=== PATIENT | female | born 1965 | race Caucasian/White ===

== ENCOUNTER 2023-03-06 07:27 | Day surgery (SDC) | payer MEDICARE ==
[2023-03-01 16:22] VITALS: BMI 43.4
[~2023-03-06 07:27] MED LIST: LACTATED RINGERS 1,000 ML IV SCH; LIDOCAINE 1% (10MG/ML) FOR IV START INTRADERMA PRN
[2023-03-06 07:54] VITALS: RESP 16; TEMP 97.1
[2023-03-06 08:14] LABS: Glucose,Whole Blood 150 mg/dL (70-110)
[2023-03-06] MEDS ORDERED: PROPOFOL 10 MG/ML 20 ML VIAL IV ONE (08:21)
[2023-03-06] MEDS ORDERED: LIDOCAINE 2% INJ 20 MG/ML (2 ML VIAL) ONE (08:21)
--- NOTE | 2023-03-06 08:24 | P.GSHP ---
History of Present Illness H&P Date: 03/06/23 Chief Complaint: Dysphagia, screening, history of polyps 87 yo female here for upper and lower endoscopy. Patient with history of Sjogren's disease. Patient has complaints of dysphagia. Was told she had elevated eosinophils per her primary care physician. She has a history of colon polyps. No bowel complaints currently. Past Medical History Past Medical History: Cancer Additional Past Medical History / Comment(s): Celiac, Sjogren's & Legius syndrome. Hx. of uterine cancer. History of Any Multi-Drug Resistant Organisms: None Reported Past Surgical History: Section, Hysterectomy Additional Past Surgical History / Comment(s): Breast lumpectomy, radiation. Past Anesthesia/Blood Transfusion Reactions: No Reported Reaction Smoking Status: Never smoker - Past Family History Mother Family Medical History: Cancer Medications and Allergies Home Medications Medication Instructions Recorded Confirmed Type ALPRAZolam [Xanax] 0.5 mg PO HS 03/01/23 03/01/23 History Insulin Aspart [NovoLOG] 5 units SQ ACHS 03/01/23 03/01/23 History Insulin Glargine,Hum.rec.anlog 60 units SQ HS 03/01/23 03/01/23 History [Toujeo Solostar] Allergies Allergy/AdvReac Type Severity Reaction Status Date / Time azithromycin [From Zithromax] Allergy Rash/Hives Verified 03/06/23 07:44 latex Allergy Rash/Hives Verified 03/06/23 07:44 levofloxacin [From Levaquin] Allergy Rash/Hives Verified 03/06/23 07:44 metronidazole [From Flagyl] Allergy Rash/Hives Verified 03/06/23 07:44 Sulfa (Sulfonamide Allergy Rash/Hives Verified 03/06/23 07:44 Antibiotics) Surgical - Exam Vital Signs Temp Pulse Resp BP Pulse Ox 97.1 F L 83 16 164/80 96 03/06/23 07:52 03/06/23 07:52 03/06/23 07:52 03/06/23 07:52 03/06/23 07:52 Physical exam: General: Well-developed, well-nourished HEENT: Normocephalic, sclerae nonicteric Abdomen: Nontender, nondistended Extremities: No edema Neuro: Alert and oriented Results - Labs Abnormal Lab Results - Last 24 Hours (Table) 03/06/23 Range/Units 08:00 POC Glucose (mg/dL) 150 H (70-110) mg/dL Assessment and Plan (1) Colon cancer screening Narrative/Plan: Will proceed with upper and lower endoscopy Current Visit: Yes Status: Acute Code(s): Z12.11 - ENCOUNTER FOR SCREENING FOR MALIGNANT NEOPLASM OF COLON SNOMED Code(s): 347759344
--- NOTE | 2023-03-06 08:53 | P.PCN ---
Date of Procedure: 03/06/23 Procedure(s) Performed: PREOPERATIVE DIAGNOSIS: Dysphagia, GERD POSTOPERATIVE DIAGNOSIS: Mild gastritis, small hiatal hernia, mild esophageal narrowing, colon polyp 2, diverticulosis PROCEDURE: 1. EGD with biopsy 2. Colonoscopy with snare polypectomy ANESTHESIA: [facility] [place] SURGEON: Odilon Bean M.D. SPECIMENS: Antrum, colon polyps ENDOSCOPIC PROCEDURE: The patient was on the endoscopy table in the left decubitus position. The Olympus gastroscope was inserted into the oropharynx and passed under direct visualization to the region of the third portion of the duodenum. From that point the scope was slowly withdrawn inspecting all surfaces carefully. There were no neoplastic inflammatory or polypoid lesions throughout the duodenum. The pylorus was widely patent. The stomach was carefully inspected. There was mild gastritis present. A biopsy of the antrum took place to rule out H. pylori. Retroflexion revealed a small 1-2 cm hiatal hernia. There was no evidence of inflammation in the esophagus. There was mild narrowing of the esophagus throughout with some loss of distensibility consiste nt with her diagnosis of Sjogren's. The patient was kept on the endoscopy table in the left decubitus position. The Olympus colonoscope was inserted into the anus and passed under direct visualization to the base of the cecum. The appendiceal orifice was visualized. From that point the scope was slowly withdrawn inspecting all surfaces carefully. There were no neoplastic inflammatory or polypoid lesions throughout the cecum or ascending colon. In the transverse colon there were 2 pedunculated polyp seen 1 at 120 and 1 at 90 cm. Both were removed using the snare with cautery technique. The remainder of the descending sigmoid and rectum was normal. There was mild scattered diverticulosis. Digital rectal examination was normal. The patient was taken to the recovery room in stable condition per anesthesia guidelines. RECOMMENDATIONS: Await biopsy results. Tentatively recommend repeat colonoscopy 3 years.
[2023-03-06 09:07] VITALS: BP 113/63; PULSE 64
== END 2023-03-06 09:25 | disposition home or self-care (01) ==
LOC: ORWHC2ENDO 07:27
PROVIDERS: ATTEND Surgery
DX: K29.50 Unspecified chronic gastritis without bleeding (principal); D12.3 Benign neoplasm of transverse colon; K44.9 Diaphragmatic hernia without obstruction or gangrene; K22.2 Esophageal obstruction; K57.30 Diverticulosis of large intestine without perforation or abscess without bleeding; M35.00 Sjogren syndrome, unspecified; Z85.42 Personal history of malignant neoplasm of other parts of uterus; Z90.710 Acquired absence of both cervix and uterus; Z98.891 History of uterine scar from previous surgery; Z80.8 Family history of malignant neoplasm of other organs or systems; Z79.899 Other long term (current) drug therapy; Z88.1 Allergy status to other antibiotic agents; Z91.040 Latex allergy status; Z88.2 Allergy status to sulfonamides
CPT/HCPCS: 88305; 45385; 43239; J2704; J2001